=== PATIENT | female | born 1980 | race Hispanic/Latino ===

== ENCOUNTER 2022-01-28 11:55 | Emergency (ER) | payer MEDICAID, OTHER ==
[~2022-01-28] VITALS: Ht 162.6 cm; Wt 63.5 kg
[2022-01-28 12:00] VITALS: BP 118/76
[2022-01-28 12:25] LABS: APPEARANCE,URINE Cloudy (CLEAR); BILIRUBIN,URINE Negative (NEGATIVE); COLOR,URINE Yellow (YELLOW); GLUCOSE, URINE (UA) Negative (NEGATIVE); KETONES,URINE 15 mg/dL (NEGATIVE); LEUKOCYTE ESTERASE ,URINE Large (NEGATIVE); NITRATE,URINE Positive (NEGATIVE); OCCULT BLOOD,URINE Small (NEGATIVE); PROTEIN,URINE POS 1+ mg/dL (NEGATIVE); UROBILINOGEN,URINE 0.2 mg/dL (0.2-1.0)
[2022-01-28 12:33] LABS: BASOPHILS % (AUTO) 0.3 % (0.0-5.0); HEMATOCRIT 29.9 % (36-48); LYMPHOCYTES % (AUTO) 8.5 % (21.0-51.0); MEAN CORPUSCULAR HEMOGLOBIN 20.7 pg (27.0-33.0); MEAN CORPUSCULAR HGB CONC 29.4 g/dL (32.0-36.0); MEAN CORPUSCULAR VOLUME 70.4 fL (79-99); MONOCYTES % (AUTO) 6.6 % (3.0-13.0); NEUTROPHILS % (AUTO) 84.3 % (40.0-77.0); PLATELET COUNT (AUTO) 376 K/uL (130-400); RED BLOOD CELL COUNT(AUTO) 4.25 MIL/uL (4.00-5.50); RED CELL DISTRIBUTION WIDTH 16.7 % (11.0-15.5); WHITE BLOOD COUNT (AUTO) 10.2 K/uL (4.8-10.8)
[2022-01-28 12:34] LABS: BACTERIA,URINE Moderate /HPF (None Seen); RBC,URINE 0-1 /HPF (0-1); SQUAMOUS EPITHELIAL CELL,UR Rare /HPF (0-2); WBC,URINE 51-100 /HPF (0-1)
[2022-01-28 12:37] LABS: HCG,QUAL RESULT NEGATIVE (NEGATIVE)
[2022-01-28 13:02] LABS: CREATININE 0.8 mg/dL (0.5-1.5); POTASSIUM 3.8 mmol/L (3.5-5.1)
[2022-01-28 13:07] LABS: ALBUMIN 3.9 g/dL (3.5-5.0); BILIRUBIN,TOTAL 0.7 mg/dL (0.2-1.0); TOTAL PROTEIN, SERUM 7.9 g/dL (6.0-8.3)
[2022-01-28] MEDS ORDERED: 0.9%NACL 1000ML 1,000 ML IV ONE (15:00)
[2022-01-28] MEDS ORDERED: ACETAMINOPHEN 500 MG TABLET PO ONE (15:30)
[2022-01-28] MEDS ORDERED: KETOROLAC 15MG/ML VIAL (15MG/ML) IV ONE (15:30)
[2022-01-28] MEDS ORDERED: CEFTRIAXONE 1G VIAL IVP ONE (15:30)
[2022-01-28] MEDS ORDERED: IBUP-2070 PO (17:32)
[2022-01-28] MEDS ORDERED: CEPH500B PO (17:32)
== END 2022-01-28 18:04 | disposition home or self-care (01) ==
LOC: EDH 11:55
DX: N39.0 Urinary tract infection, site not specified (principal); Z79.1 Long term (current) use of non-steroidal anti-inflammatories (NSAID)
CPT/HCPCS: 36415; 74176; 80053; 81001; 81025; 83605; 85025; 87040 ×2; 87077; 87088; 87186; 96361; 96374; 96375; 99284; J0696; J1885; J7030